=== PATIENT | female | born 1950 | race Caucasian/White ===

== ENCOUNTER 2017-08-24 16:56 | Emergency (ER) | payer OTHER, MEDICARE ==
[~2017-08-24] VITALS: Ht 175.3 cm; Wt 100.0 kg
[2017-08-24 17:05] VITALS: BP 194/96; PULSE 83; RESP 16; TEMP 98.6; O2SAT 99
[2017-08-24] MEDS ORDERED: ONDANSETRON HCL 4 MG/2 ML VIAL IV PUSH ONE (17:15)
[2017-08-24] MEDS ORDERED: MORPHINE SULFATE 2 MG/ML INJ IV PUSH ONE (17:15)
[2017-08-24] MEDS ORDERED: SODIUM CHLORIDE 0.9% FLUSH 10 ML FLUSH IVF PRN (17:15)
[2017-08-24 17:54] LABS: BASOPHIL % 0.4 % (0.0-2.0); EOSINOPHIL # 0.1 TH/MM3 (0-0.4); EOSINOPHIL % 1.3 % (0.0-4.0); HEMO FLAGS DIFF FINAL; LYMPH % 27.9 % (9.0-44.0); LYMPHOCYTE # 2.5 TH/MM3 (1.0-4.8); MEAN CELL VOLUME 91.1 FL (80.0-100.0); MEAN CORPUSCULAR HEMOGLOBIN 31.4 PG (27.0-34.0); MEAN CORPUSCULAR HGB CONC 34.4 % (32.0-36.0); MONO % 3.4 % (0.0-8.0); PLATELET COUNT 290 TH/MM3 (150-450); RED CELL DISTRIBUTION WIDTH 14.5 % (11.6-17.2); WHITE BLOOD COUNT 8.9 TH/MM3 (4.0-11.0)
[2017-08-24] MEDS ORDERED: MORPHINE SULFATE 8 MG/ML INJ IV PUSH ONE ×2 (18:00→19:30)
[2017-08-24] MEDS ORDERED: MORPHINE SULFATE 4 MG/ML INJ IV PUSH ONE ×2 (18:00→21:15)
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
[2017-08-24 18:41] LABS: ALCOHOL LESS THAN 3 MG/DL (0-5); ANION GAP 6 MEQ/L (5-15); BICARBONATE 26.4 MEQ/L (21.0-32.0); BLOOD UREA NITROGEN 22 MG/DL (7-18); CHLORIDE 105 MEQ/L (98-107); GLOMERULAR FILTRATION RATE 59 ML/MIN (>89); POTASSIUM 3.8 MEQ/L (3.5-5.1); SODIUM (NA) 137 MEQ/L (136-145)
[2017-08-24] MEDS ORDERED: IOHEXOL 350 MG/ML 10 ML VIAL (for RAD DIAG) IVCONTRAST ONE (19:34)
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
[2017-08-24 21:00] VITALS: BP 126/68; PULSE 74; RESP 16; O2SAT 98
[2017-08-24 22:10] VITALS: BP_SYST 109; BP_SYST 121; BP_DIAS 58; BP_DIAS 68; RESP 12; RESP 14
[2017-08-24] MEDS ORDERED: TETANUS/DIPHTHERIA TOXOID ADULT 0.5 ML VIAL IM ONE (22:30)
[2017-08-24] MEDS ORDERED: BACITRACIN TOP OINT 15 GM TUBE TOPICAL ONE (22:30)
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
[2017-08-24] MEDS ORDERED: IBUP-232 PO (22:59)
[2017-08-24] MEDS ORDERED: TRAM50TA PO (22:59)
[2017-08-24 23:00] VITALS: BP 109/58; PULSE 72; RESP 14
== END 2017-08-24 23:58 | disposition home or self-care (01) ==
LOC: NEPC 16:56
DX: S30.1XXA Contusion of abdominal wall, initial encounter (principal); R07.89 Other chest pain; R10.31 Right lower quadrant pain; I10 Essential (primary) hypertension; Z23 Encounter for immunization; Z79.899 Other long term (current) drug therapy; Z87.19 Personal history of other diseases of the digestive system; V49.88XA Car occupant (driver) (passenger) injured in other specified transport accidents, initial encounter
CPT/HCPCS: 70450; 71260; 72125; 72128; 72131; 74177; 80048; 80307; 85025; 85610; 85730; 86850; 86900; 86901; 90471; 90714; 96374; 96375; 99285; J2270; J2405; Q9967